=== PATIENT | female | born 1980 | race Caucasian/White ===

== ENCOUNTER 2020-10-12 18:00 | Emergency (ER) | payer MEDICAID ==
[~2020-10-12] VITALS: Ht 167.6 cm; Wt 120.0 kg
[2020-10-12 18:18] VITALS: BP 152/79
[2020-10-12] MEDS ORDERED: LIDOcaine 1% W/epiNEPHrine 1:200,000 10ml vial IJ ONE (18:30)
[2020-10-12] MEDS ORDERED: SULF1TAB49 PO (19:37)
[2020-10-12] MEDS ORDERED: CEPH250T PO (19:37)
[2020-10-12] MEDS ORDERED: ibuprofen tablet 400 MG TABLET PO STA (19:37)
== END 2020-10-12 19:42 | disposition home or self-care (01) ==
LOC: ER 18:03
DX: L02.31 Cutaneous abscess of buttock (principal); L03.317 Cellulitis of buttock; Z88.8 Allergy status to other drugs, medicaments and biological substances; Z79.2 Long term (current) use of antibiotics
CPT/HCPCS: 99283